=== PATIENT | male | born 1980 | race Caucasian/White ===

== ENCOUNTER 2024-02-18 11:14 | Emergency (ER) | payer SELFPAY ==
--- NOTE | 2024-02-18 11:19 | ED_ITS ---
Discharge Plan Disposition Patient Disposition: Home, Self-Care Condition: Good Prescriptions Prescriptions: New ketorolac 10 mg tablet 10 mg PO Q8H PRN (Reason: pain) 5 Days Qty: 14 0RF lidocaine 5 % adhesive patch,medicated 1 patch topical DAILY Qty: 30 0RF Rx Instructions: leave on most painful area for up to 12 hrs methocarbamol 750 mg tablet 750 mg PO Q8H Qty: 90 0RF Referrals Follow up/Referrals: Berlin Campbell [Primary Care Provider] - See instructions Activity Restrictions/Add. Instructions Additional Instructions/Restrictions: I have prescribed a muscle relaxer, a numbing medication for you to put on your back, and a pain medication. Please return with any new or worsening symptoms. Clinical Impressions Clinical Impression: Acute radicular low back pain Instructions Patient Instructions: DI for Acute Pain -- Adult Print Language Print Language: Nepalese Discharge ED Provider: Ab Degroot General Adult HPI General Chief complaint: PAIN Stated complaint: lower back/rt hip pain Time Seen by Provider: 02/18/24 11:18 History of Present Illness HPI narrative: The patient presents with a chief complaint of worsening pain around the hip and lower back area, which has been ongoing for a couple of weeks. 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 The pain has become severe enough to affect daily activities, such as getting out of bed and putting on a wetsuit for work. The pain radiates from the lower back around to the hip, with minimal pain in the middle of the back. The patient denies any pain during urination and has no history of kidney stones. There is no mention of chronic medical conditions or daily medications, but the patient has been trying ibuprofen to manage the pain. The patient reports that the pain is worse with movement, stating if I sit, lay, I can't go forward. The patient also mentions that he had enough of it last night, indicating the pain has reached a point where he feels he can no longer tolerate it. The patient works third shift at [employer] and has informed his boss about the issue. Please note that above description of symptoms, in this electronic medical record under categorization of recalled from ER triage doctor by RN are reflective of an initial nursing assessment, however, is not reflective of my full history and physical exam that was personally taken and clarified. Consequentially, this preceding description of symptoms, which may include the patient's categorized chief complaint in the EMR, do not reflect my personal clinical impression, and the ultimate description of history of present illness and patient stated complaints should be deferred to this section of the note. Unless stated otherwise or congruent with this section of the note, additional signs, symptoms, or incongruence should be interpreted as inaccurate with my clinical impression. Related Data Previous Rx's ?Medication ?Instructions ?Recorded ketorolac 10 mg tablet 10 mg PO Q8H PRN pain 5 days #14 02/18/24 tabs lidocaine 5 % topical patch 1 patch topical DAILY #30 ea 02/18/24 methocarbamol 750 mg tablet 750 mg PO Q8H #90 tabs 02/18/24 Allergies Allergy/AdvReac Type Severity Reaction Status Date / Time No Known Allergies Allergy Verified 02/18/24 11:24 PFSH PFS Disclaimer: The information contained in this section may have been updated after the patient was seen, as this information can be updated by other users. Social History Smoking Status: Current every day smoker alcohol intake: never current occupational status: other ROS Obtained: Yes other As per HPI Physical Exam General General appearance: alert and in no apparent distress Head Head exam: atraumatic and normocephalic Eye Eye exam: Present normal appearance Neck Neck exam: Present normal inspection Chest Chest inspection: Present normal inspection and symmetric chest wall rise Respiratory Respiratory exam: Present normal lung sounds bilaterally; Absent respiratory distress Cardiovascular Cardiovascular exam: Present regular rate and normal rhythm Abdominal Exam Abdominal exam: Present soft Neurological Exam Neurological exam: Present alert and oriented X3 Psychiatric Psychiatric exam: Present normal affect and normal mood Skin Skin exam: Present warm and dry Other Other exam information: Paraspinal lumbar spinal tenderness palpation Medical Decision Making Medical Records Medical records reviewed: Yes I reviewed the patient's medical records. Screening: Per USPSTF and CDC recommendations, given the prevalence of disease in our region, it is our hospital?s policy to screen for HIV and viral Hepatitis for all patients aged 18 and over and those with ongoing risk factors. Jacob Inquiry Pt receiving controlled substance: No Vital Signs: 02/18/24 11:21 02/18/24 11:30 02/18/24 12:00 Temperature 97.9 F Temperature Source Oral Pulse Rate 100 H 86 Pulse Rate [Left Radial] 85 Respiratory Rate 14 Blood Pressure 135/86 130/93 H Blood Pressure [Right Arm] 127/78 Blood Pressure Mean Blood Pressure Mean [Right Arm] 94 Blood Pressure Source 02 Sat by Pulse Oximetry 99 98 95 Oxygen Delivery Method Room Air 02/18/24 12:30 02/18/24 13:00 02/18/24 13:16 Temperature 97.9 F Temperature Source Oral Pulse Rate 80 86 73 Pulse Rate [Left Radial] Respiratory Rate 18 Blood Pressure 130/97 H 127/86 127/86 Blood Pressure [Right Arm] Blood Pressure Mean 103 93 Blood Pressure Mean [Right Arm] Blood Pressure Source Automatic Cuff 02 Sat by Pulse Oximetry 99 97 Oxygen Delivery Method Room Air Room Air Room Air Orders (Tests/Meds): ED MEDICATIONS Discontinued Medications Generic Name Dose Route Start Last Admin Trade Name Freq PRN Reason Stop Dose Admin Dexamethasone 10 mg 02/18/24 12:00 02/18/24 12:10 Dexamethasone 4mg Tablet PO 02/18/24 12:01 10 mg ONCE ONE Administration Ketorolac Tromethamine 15 mg 02/18/24 12:00 02/18/24 12:09 Ketorolac 30mg/Ml Vial IM 02/18/24 12:01 15 mg ONCE ONE Administration ORDERS Category Date Time Status XR lumbar spine 2-3V Stat Exams 02/18/24 12:00 Completed Medical Decision Narrative: Patient with history and exam per above presenting for evaluation of low back pain Diagnoses considered include lumbosacral sprain, no red flag symptoms for cauda equina syndrome, conus medullaris syndrome, or fracture ED workup and treatment included: ED MEDICATIONS Discontinued Medications Generic Name Dose Route Start Last Admin Trade Name Freq PRN Reason Stop Dose Admin Dexamethasone 10 mg 02/18/24 12:00 02/18/24 12:10 Dexamethasone 4mg Tablet PO 02/18/24 12:01 10 mg ONCE ONE Administration Ketorolac Tromethamine 15 mg 02/18/24 12:00 02/18/24 12:09 Ketorolac 30mg/Ml Vial IM 02/18/24 12:01 15 mg ONCE ONE Administration ORDERS Category Date Time Status XR lumbar spine 2-3V Stat Exams 02/18/24 12:00 Completed Imaging was independently visualized and interpreted by me, significant for no acute findings Please refer to radiology report for full details. I discussed my clinical impression with patient and answered all questions. At this time, the evidence for any other entities in the differential is insufficient to warrant any further testing or ED observation. This was explained to the patient. The patient was advised that persistent or worsening symptoms require further evaluation. Critical Care Critical Care Time Critical Care Time: No
[2024-02-18 11:21] VITALS: BP 127/78; PULSE 85; RESP 14; TEMP 36.6; O2SAT 99; BMI 26.0
[2024-02-18 11:30] VITALS: BP 135/86; PULSE 100; O2SAT 98
[2024-02-18 12:00] VITALS: BP 130/93; PULSE 86; O2SAT 95
--- NOTE | 2024-02-18 12:00 | XR_ITS ---
PROCEDURE INFORMATION: Exam: XR Lumbosacral Spine Exam date and time: 02/18/2024 12:08 PM Age: 43 years old Clinical indication: Low back pain; Additional info: Midline low back pain, L si pain TECHNIQUE: Imaging protocol: Radiologic exam of the lumbosacral spine. Views: 2 or 3 views. COMPARISON: No relevant prior studies available. FINDINGS: Bones/joints: 5 non-rib bearing lumbar segments in near anatomical alignment. Alignment is normal. No fracture. Disc space height is well-maintained. No osteophytosis. No visualized pars defect. Facets are without acute process. Soft tissues: Unremarkable. IMPRESSION: Normal lumbar spine series
[2024-02-18] MEDS: KETOROLAC 30MG/ML VIAL 15 MG IM (12:09)
[2024-02-18] MEDS: DEXAMETHASONE 4MG TABLET 10 MG PO (12:10)
--- NOTE | 2024-02-18 12:24 | PC.NURSE ---
pt back from xray
[2024-02-18 12:30] VITALS: BP 130/97; PULSE 80; O2SAT 99
[2024-02-18 13:00] VITALS: BP 127/86; PULSE 86; O2SAT 97
[2024-02-18 13:16] VITALS: BP 127/86; PULSE 73; RESP 18; TEMP 36.6; O2SAT 98
== END 2024-02-18 13:27 | disposition home or self-care (01) ==
PROVIDERS: Emergency Provider Emergency Medicine; PCP Pediatrics
DX: M54.16 Radiculopathy, lumbar region (principal); M54.50 Low back pain, unspecified; M25.551 Pain in right hip
CPT/HCPCS: 72100; 96372; 99283; J1885; J8540